=== PATIENT | female | born 1960 | race Two or more races ===

== ENCOUNTER 2020-05-29 11:05 | Emergency (ER) | payer OTHER ==
[~2020-05-29] VITALS: Ht 157.5 cm; Wt 72.6 kg
[2020-05-29] MEDS ORDERED: ZESTRIL10 M1 PO (11:18)
[2020-05-29] MEDS ORDERED: RELAFEN DS1000 MG PO (11:18)
[2020-05-29] MEDS ORDERED: HORIZANT300 MG PO (11:18)
== END 2020-05-29 21:00 | disposition home or self-care (01) ==
LOC: ER 11:05 → CPU-OBS 11:38 → ER 21:00
DX: K52.89 Other specified noninfective gastroenteritis and colitis (principal); Z20.822 Contact with and (suspected) exposure to COVID-19
CPT/HCPCS: 93005; 74176; G0378; G0379

== ENCOUNTER 2020-06-27 10:11 | Outpatient (CLI) | payer OTHER ==
[~2020-06-27 10:11] MED LIST: HORIZANT300 MG PO; RELAFEN DS1000 MG PO; ZESTRIL10 M1 PO
== END 2020-06-27 10:25 | disposition home or self-care (01) ==
LOC: RAD 10:11
PROVIDERS: ATTEND Orthopaedic Surgery
DX: M25.571 Pain in right ankle and joints of right foot (principal)